=== PATIENT | male | born 1975 | race Caucasian/White ===

== ENCOUNTER 2017-01-08 19:51 | Emergency (ER) | payer SELFPAY ==
[~2017-01-08] VITALS: Ht 180.3 cm; Wt 72.8 kg
[2017-01-08 19:58] VITALS: TEMP 36.7; Ht 180.3 cm; Wt 72.8 kg
[2017-01-08 20:14] VITALS: O2SAT 99
--- NOTE | 2017-01-08 20:17 | EMERGENCY ROOM VISIT NOTE ---
History Report prepared by Cassia: Larry Richard Under the Supervision of: Dr. Everette Winston M.D. First contact with patient: 20:02 Chief Complaint: CARDIAC ASSESSMENT Stated Complaint: TIGHTNESS IN CHEST, NUMB FROM THE NECK DOWN History of Present Illness The patient is a 41 year old male who presents to the Emergency Room with complaints of "numbness" and "heaviness" in his chest that began this evening at 1830, 1.5 hours prior to arrival. The patient states that he was blowing up balloons this evening when he suddenly experienced numbness from the bottom of his chin to the bottom of his sternum. His pain was initially constant and worsened with deep inspiration. He states that his pain is now starting to alleviate slightly. He is a smoker and admits to smoking 0.5 packs per day. He has never had a cardiac stress test performed. 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 A total of 10 systems reviewed and were otherwise negative. Past Medical & Surgical No pertinent past medical/surgical histories. Family History Heart disease Hypertension Social History Smoking Status: Current Every Day Smoker Marital Status: Housing Status: lives with family Occupation Status: employed Current/Historical Medications No Active Prescriptions or Reported Meds Allergies Coded Allergies: Penicillins (Verified Allergy, Unknown, HIVES, swelling of throat, 01/08/17 ) Physical Exam Vital Signs Date Time Temp Pulse Resp B/P Pulse Ox O2 Delivery O2 Flow Rate FiO2 01/08/17 22:13 64 18 106/65 98 01/08/17 20:21 67 01/08/17 20:14 99 Room Air 01/08/17 20:14 100 Room Air 01/08/17 20:06 99 Room Air 01/08/17 19:58 36.7 74 18 142/80 99 Room Air Physical Exam GENERAL: Patient is a healthy-appearing well-nourished HEAD: Normocephalic atraumatic EYES: Ocular movements intact pupils equal and react to light OROPHARYNX mucous membranes are moist no exudates present no erythema or edema present NECK: Supple no nuchal rigidity CHEST: Good equal expansion LUNGS: Clear and equal to auscultation CARDIAC: Normal S1 and S2 ABDOMEN: Soft nontender no guarding BACK: No CVA tenderness EXTREMITIES: No pain upon palpation normal muscle strength in all groups no clubbing cyanosis or edema NEURO: Patient is following commands is answering questions appropriately. Alert and oriented x3 Cranial Nerves 2-12 grossly intact Medical Decision & Procedures ER Provider Diagnostic Interpretation: Radiology results as stated below per my review and radiologist interpretation: SINGLE VIEW CHEST CLINICAL HISTORY: Atypical chest pain. FINDINGS: 2 AP, portable, upright chest radiographs are obtained. No prior studies are available for comparison at the time of dictation. The cardiomediastinal silhouette is unremarkable. A calcified granuloma is incidentally noted in the left upper lobe. The lungs and pleural spaces are clear. No pneumothorax is seen. The bony thorax is grossly intact. There is S-shaped thoracolumbar scoliosis. IMPRESSION: No active disease in the chest. Electronically signed by: Ashutosh Ortega M.D. 01/08/2017 8:45 PM Dictated Date/Time: 01/08/2017 8:44 PM Laboratory Results 01/08/17 20:21 Red Blood Count 4.62, Mean Corpuscular Volume 84.8, Mean Corpuscular Hemoglobin 30.7, Mean Corpuscular Hemoglobin Concent 36.2, Mean Platelet Volume 10.0, Neutrophils (%) (Auto) 52.7, Lymphocytes (%) (Auto) 35.8, Monocytes (%) (Auto) 5.2, Eosinophils (%) (Auto) 4.3, Basophils (%) (Auto) 1.8, Neutrophils # (Auto) 4.50, Lymphocytes # (Auto) 3.05, Monocytes # (Auto) 0.44, Eosinophils # (Auto) 0.37, Basophils # (Auto) 0.15 01/08/17 20:21 Test 01/08/17 20:21 01/08/17 20:28 01/08/17 21:36 White Blood Count 8.53 K/uL (4.8-10.8) Red Blood Count 4.62 M/uL (4.7-6.1) Hemoglobin 14.2 g/dL (14.0-18.0) Hematocrit 39.2 % (42-52) Mean Corpuscular Volume 84.8 fL (80-100) Mean Corpuscular Hemoglobin 30.7 pg (25-34) Mean Corpuscular Hemoglobin Concent 36.2 g/dl (32-36) Platelet Count 252 K/uL (130-400) Mean Platelet Volume 10.0 fL (7.4-10.4) Neutrophils (%) (Auto) 52.7 % Lymphocytes (%) (Auto) 35.8 % Monocytes (%) (Auto) 5.2 % Eosinophils (%) (Auto) 4.3 % Basophils (%) (Auto) 1.8 % Neutrophils # (Auto) 4.50 K/uL (1.4-6.5) Lymphocytes # (Auto) 3.05 K/uL (1.2-3.4) Monocytes # (Auto) 0.44 K/uL (0.11-0.59) Eosinophils # (Auto) 0.37 K/uL (0-0.5) Basophils # (Auto) 0.15 K/uL (0-0.2) RDW Standard Deviation 38.6 fL (36.4-46.3) RDW Coefficient of Variation 12.4 % (11.5-14.5) Immature Granulocyte % (Auto) 0.2 % Immature Granulocyte # (Auto) 0.02 K/uL (0.00-0.02) Est Creatinine Clear Calc Drug Dose 91.9 ml/min Estimated GFR () 96.8 Estimated GFR (Non- 83.5 BUN/Creatinine Ratio 13.9 (10-20) Calcium Level 8.5 mg/dl (8.5-10.1) Total Bilirubin 0.2 mg/dl (0.2-1) Direct Bilirubin < 0.1 mg/dl (0-0.2) Aspartate Amino Transf (AST/SGOT) 13 U/L (15-37) Alanine Aminotransferase (ALT/SGPT) 23 U/L (12-78) Alkaline Phosphatase 60 U/L (45-117) Total Creatine Kinase 153 U/L (39-308) Creatine Kinase MB 1.3 ng/ml (0.5-3.6) Creatine Kinase MB Ratio 0.8 (0-3.0) Troponin I < 0.015 ng/ml (0-0.045) Total Protein 7.3 gm/dl (6.4-8.2) Albumin 4.0 gm/dl (3.4-5.0) Lipase 176 U/L (73-393) Bedside Hemoglobin 13.6 g/dl (14.0-18.0) Bedside Hematocrit 40 % (42-52) Bedside D-Dimer 174 ng/mlFEU (0-450) Bedside Sodium 142 mEq/L (135-144) Bedside Potassium 3.6 mEq/L (3.3-5.0) Bedside Chloride 102 mEq/L (101-112) Bedside Total CO2 24 mEq/l (24-31) Anion Gap 20.0 mmol/L (16-25) Bedside Blood Urea Nitrogen 16 mg/dl (7-18) Bedside Creatinine 0.9 mg/dl (0.6-1.3) Bedside Glucose (other) 86 mg/dl (70-99) Bedside Ionized Calcium (Fito) 1.19 mmol/l (1.12-1.32) Bedside Troponin I 0.000 ng/ml (0-0.045) Labs reviewed by ED physician. ECG Indication: chest pain Rate (beats per minute): 68 Rhythm: normal sinus Findings: no acute ischemic change, no ectopy Comparison ECG Date: Repeat Change: no significant change Change: NSR, 60, Unchanged from Previous ED Course 2006: Past medical records reviewed. The patient was evaluated in room A10. A complete history and physical examination was performed. 2204: Upon reexamination the patient is much improved. I discussed results and treatment plan with the patient. He verbalizes agreement and understanding. The patient is ready for discharge. Medical Decision Differential diagnosis: Etiologies such as cardiac ischemia, aortic dissection, pulmonary embolism, pneumonia, pneumothorax, musculoskeletal, infections, pericarditis, myocarditis , esophageal rupture, gastrointestinal, as well as others were entertained. This is a 41-year-old male who presents emergency department complaining of chest pain. The patient is pain-free however we are able to palpate his pain at the xiphoid process as well as the epigastric area. The patient is concerned about his heart has a smoking history and his brother of a heart attack. EKG does not show any evidence of acute process, this was repeated approximately 90 minutes later and showed no change. In addition the patient had CK-MB and troponin fractions drawn as well as a d-dimer. These were all found to be normal. His troponin level was repeated approximately 90 minutes later and was again found to be normal. Based on these findings I felt the patient was well enough to be discharged home for follow-up with cardiology. I stressed to the patient not to have any strenuous activity until his follow-up. Both patient and are in agreement with the treatment plan. Impression Primary Impression: Precordial chest pain Scribe Attestation The scribe's documentation has been prepared under my direction and personally reviewed by me in its entirety. I confirm that the note above accurately reflects all work, treatment, procedures, and medical decision making performed by me. Departure Information Dispostion Home / Self-Care Prescriptions No Active Prescriptions or Reported Meds Referrals No Doctor, Assigned (PCP) Forms IMPORTANT VISIT INFORMATION Patient Instructions My [facility] Additional Instructions Follow up with DR Duong's office No strenuous activity until follow up You have been examined and treated today on an emergency basis only. This is not a substitute for, or an effort to provide, complete comprehensive medical care. It is impossible to recognize and treat all injuries or illnesses in a single emergency department visit. It is therefore important that you follow up closely with your PCP. Call as soon as possible for an appointment. Thank you for your time and consideration. I look forward to speaking with you again soon. Please don't hesitate to call us if you have any questions.
[2017-01-08 20:35] LABS: BASO % 1.8 %; BASO ABS # 0.15 K/uL (0-0.2); COMPLETE YES; EOS % 4.3 %; HEMATOCRIT 39.2 % (42-52); IG% 0.2 %; LYMPH % 35.8 %; LYMPH ABS # 3.05 K/uL (1.2-3.4); MEAN CELL VOLUME 84.8 fL (80-100); MEAN CORPUSCULAR HEMOGLOBIN 30.7 pg (25-34); MEAN CORPUSCULAR HGB CONC 36.2 g/dl (32-36); MONO % 5.2 %; NEUT % 52.7 %; PLATELET COUNT 252 K/uL (130-400); RED BLOOD COUNT 4.62 M/uL (4.7-6.1); WHITE BLOOD COUNT 8.53 K/uL (4.8-10.8)
[2017-01-08 20:44] LABS: ISTAT CREATININE 0.9 mg/dl (0.6-1.3); ISTAT HEMOGLOBIN 13.6 g/dl (14.0-18.0); ISTAT IONIZED CALCIUM 1.19 mmol/l (1.12-1.32)
--- NOTE | 2017-01-08 20:47 | DIAGNOSTIC IMAGING REPORT ---
SINGLE VIEW CHEST CLINICAL HISTORY: Atypical chest pain. FINDINGS: 2 AP, portable, upright chest radiographs are obtained. No prior studies are available for comparison at the time of dictation. The cardiomediastinal silhouette is unremarkable. A calcified granuloma is incidentally noted in the left upper lobe. The lungs and pleural spaces are clear. No pneumothorax is seen. The bony thorax is grossly intact. There is S-shaped thoracolumbar scoliosis. IMPRESSION: No active disease in the chest. Electronically signed by: Ashutosh Ortega M.D. 01/08/2017 8:45 PM Dictated Date/Time: 01/08/2017 8:44 PM
[2017-01-08 20:54] LABS: ALT/SGPT 23 U/L (12-78); AST/SGOT 13 U/L (15-37); BLOOD UREA NITROGEN 15 mg/dl (7-18); BUN/CREATININE RATIO 13.9 (10-20); CALCIUM 8.5 mg/dl (8.5-10.1); CARBON DIOXIDE 28 mmol/L (21-32); CHLORIDE 107 mmol/L (98-107); GLUCOSE 84 mg/dl (70-99); POTASSIUM 3.7 mmol/L (3.5-5.1); SODIUM 144 mmol/L (136-145)
[2017-01-08 21:00] LABS: ALKALINE PHOSPHATASE 60 U/L (45-117); CKMB/CK RATIO 0.8 (0-3.0)
[2017-01-08 22:13] VITALS: BP 106/65; PULSE 64; O2SAT 98
== END 2017-01-08 22:14 | disposition home or self-care (01) ==
LOC: C.EDB 19:53 → C.EDA 22:14
DX: R07.2 Precordial pain (principal); I10 Essential (primary) hypertension; F17.210 Nicotine dependence, cigarettes, uncomplicated